=== PATIENT | male | born 1960 | race Caucasian/White ===

== ENCOUNTER 2020-02-01 10:16 | Emergency (ER) | payer MEDICARE, OTHER, SELFPAY ==
[~2020-02-01] VITALS: Ht 175.3 cm; Wt 88.6 kg
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
[2020-02-01 10:22] VITALS: BP 132/93
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
[2020-02-01] MEDS ORDERED: SODIUM CHLORIDE FLUSH 10ML SYR IVF ONE (10:30)
[2020-02-01] MEDS ORDERED: DIPH,PERTUSS(ACELL),TET VAC/PF 0.5 ML IM-VACC ONE (10:30)
[2020-02-01] MEDS ORDERED: LIDOCAINE 1%-EPI 1:100K, 20ML INFIL ONE (10:30)
[2020-02-01] MEDS ORDERED: LORazepam 1MG TABLET ONE (10:36)
--- NOTE | 2020-02-01 10:51 | NUR ---
PT VERY AGITATED AT TIMES, SPEAKING INAPPROPRIATELY TO STAFF. REQUESTING A GLASS OF WINE. ER PA NOTIFIED; MEDICATED WITH PO ATIVAN. IV STARTED. RV'WD POC WITH PT. PILLOW PROVIDED & ICE PACK TO HEAD/NECK.
--- NOTE | 2020-02-01 10:55 | NUR ---
UNABLE TO DRAW BLOOD FROM PT'S IV, AND PT REFUSED BLOOD DRAW FROM ATM MANAGER. YELLING AT ALL STAFF.
[2020-02-01] MEDS ORDERED: LORazepam 1MG TABLET PO ONE (11:00)
--- NOTE | 2020-02-01 11:00 | NUR ---
ERP & CANDY CATCHER AWARE THAT PT STATES HE'S GOING TO LEAVE AMA. PT YELLING, "I'M GOING TO GET A ROOFING CONTRACTOR! SEE YOU IN COURT!"
--- NOTE | 2020-02-01 11:08 | NUR ---
IV REMOVED WIHT SECURITY AT BS. PT YELLING AT STAFF, VERY AGITATED, ESCORTED OUT OF ED WITH SECURITY.
--- NOTE | 2020-02-01 11:12 | NUR ---
at the request of the patient to speak to admin I went in to speak with patient. When I arrived he aggressively asked me if i was the doctor. I informed him that i was not, that I was the director correctional agency and I was asked to come speak with him. Patient immediatly started yelling and cursing stating that he had been in his room and was not given his call light. 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 I apologized and he stated "all i wanted was some fucking crackers and a drink. I'm laying here in pain and I need help." I informed him that i was there to help him and he told me to get out and get a fucking man in here to help him and that he needed a "assistant real estate manager". ONce again informed him i was the administrative nursing supervisor. He continued to yell and curse at me and I informed him that that would not be tolerated and we were more than willing to help but he needed to stop yelling at staff. I left the room at that time. A few seconds later his nurse approached the desk stating he was leaving and was still aggressive. We called for security to come assist with taking his IV out. When I approached the room a few minutes later the patient was dressed and security was at the door with the primary RN Danya and Chanell the community health promoter. Chanell was asking the patient if she could take his IV out. he stated only aftet we took a picture of his IV for proof. A photo was taken of his IV and he took a phonto of security and Chanell. He then allowed Chanell to removed it. He continue to verbal abuse staff stating "Thanks Chanell" "Get ready for court Chanell" "Get ready to lose your license Chanell" "Ready to lose your carreer Chanell. See you in federal court Chanell. Patient was then escorted off property by security with a steady gait.
== END 2020-02-01 13:03 | disposition left against medical advice (07) ==
LOC: ED 13:01
DX: R07.89 Other chest pain (principal); R55 Syncope and collapse; M54.9 Dorsalgia, unspecified; R10.9 Unspecified abdominal pain; R51.9 Headache, unspecified; R11.0 Nausea; R00.0 Tachycardia, unspecified; Y08.89XA Assault by other specified means, initial encounter; Y93.89 Activity, other specified; Y92.098 Other place in other non-institutional residence as the place of occurrence of the external cause; Y99.8 Other external cause status
CPT/HCPCS: 93005; 99283